=== PATIENT | male | born 1990 ===

== ENCOUNTER 2018-10-08 15:59 | Emergency (ER) | payer MEDICAID ==
[~2018-10-08] VITALS: Ht 182.9 cm; Wt 115.2 kg
[2018-10-08 16:08] VITALS: BP 134/90
[2018-10-08] MEDS ORDERED: CLON1TAB PO (16:25)
[2018-10-08] MEDS ORDERED: FLUO10CA13 PO (16:25)
--- NOTE | 2018-10-08 16:25 | NUR ---
First contact with pt. Pt c/o pain and headache on left posterior neck one week post cyst drainage. NADN. Pt connected to all monitors. Pt states he had one episode of emesis and fell during epsiode without having head trauma. Skin is intact, no ecchymosis or skin tears observed. Pt denies chest pain, sob, diarrhea, or trauma. All safety measures in place. call light within reach. No needs expressed at this time.
[2018-10-08] MEDS ORDERED: SODIUM CHLORIDE FLUSH 10ML SYR IVF ONE (16:30)
[2018-10-08 16:37] LABS: BASOPHILS # (AUTO) 0.08 x10^3/uL (0-0.1); BASOPHILS % (AUTO) 1 % (0-1); EOSINOPHILS # (AUTO) 0.07 x10^3/uL (0-0.4); EOSINOPHILS % (AUTO) 1 % (1-7); LYMPHOCYTES # (AUTO) 2.02 x10^3/uL (1-3.4); LYMPHOCYTES % (AUTO) 17 % (22-44); MD NO; MEAN CORPUSCULAR HEMOGLOBIN 29.2 pg (27.5-34.5); MEAN CORPUSCULAR HGB CONC 34.4 g/dL (33.2-36.2); MEAN CORPUSCULAR VOLUME 84.7 fL (81-97); MEAN PLATELET VOLUME 8.3 fL (7.4-10.4); MONOCYTES % (AUTO) 4 % (2-9); NEUTROPHILS # (AUTO) 9.09 x10^3/uL (1.8-6.8); NEUTROPHILS % (AUTO) 77 % (42-75); PLATELET COUNT 272 x10^3/uL (130-400); RED BLOOD COUNT 5.71 x10^6/uL (4.38-5.82); RED CELL DISTRIBUTION WIDTH 12.6 % (9.4-14.8)
[2018-10-08 16:49] LABS: ANION GAP 6 mmol/L (5-15); CALCIUM 9.7 mg/dL (8.5-10.1); CHLORIDE 110 mmol/L (98-107); CREATININE 1.05 mg/dL (0.7-1.3)
[2018-10-08 16:51] LABS: RAPID INFLUENZA A Negative (Negative); RAPID INFLUENZA B Negative (Negative)
--- NOTE | 2018-10-08 18:09 | NUR ---
Patient given discharge instructions and Rx, they have confirmed that they understand the instructions. Patient ambulatory with steady gait.
[2018-10-08] MEDS ORDERED: OMNIPAQUE 350 MG/ML, 100ML BOTTLE ONE (18:45)
== END 2018-10-08 18:09 | disposition home or self-care (01) ==
LOC: ED 16:32
DX: L02.11 Cutaneous abscess of neck (principal)
CPT/HCPCS: 36415; 70491; 80048; 85025; 87400; 99284; Q9967